=== PATIENT | male | born 1990 | race Caucasian/White ===

== ENCOUNTER 2019-09-01 12:59 | Emergency (ER) | payer MEDICAID ==
[~2019-09-01] VITALS: Ht 193 cm; Wt 106.0 kg
[2019-09-01 13:02] VITALS: BP 143/93
[2019-09-01] MEDS ORDERED: QUET200T PO (13:39)
== END 2019-09-01 13:59 | disposition home or self-care (01) ==
LOC: ER 12:59
DX: F32.9 Major depressive disorder, single episode, unspecified (principal); Z76.0 Encounter for issue of repeat prescription; Z79.899 Other long term (current) drug therapy
CPT/HCPCS: 99283

== ENCOUNTER 2019-09-16 14:03 | Emergency (ER) | payer MEDICAID ==
[~2019-09-16] VITALS: Ht 194.3 cm; Wt 110.2 kg
[~2019-09-16 14:03] MED LIST: QUET200T PO
[2019-09-16 14:11] VITALS: BP 134/82
[2019-09-16] MEDS ORDERED: QUET200T PO (14:43)
== END 2019-09-16 14:52 | disposition home or self-care (01) ==
LOC: ER 14:03
DX: F32.9 Major depressive disorder, single episode, unspecified (principal); Z79.899 Other long term (current) drug therapy
CPT/HCPCS: 99281

== ENCOUNTER 2019-10-18 12:19 | Emergency (ER) | payer MEDICAID ==
[~2019-10-18] VITALS: Ht 193 cm; Wt 102.3 kg
[2019-10-18 13:15] VITALS: BP 138/80
[2019-10-18] MEDS ORDERED: QUET-1 PO (13:59)
[2019-10-18] MEDS ORDERED: QUET200T PO ×2 (13:59→14:01)
== END 2019-10-18 14:06 | disposition home or self-care (01) ==
LOC: ER 12:19
DX: G47.00 Insomnia, unspecified (principal); F31.9 Bipolar disorder, unspecified; Z76.0 Encounter for issue of repeat prescription; Z79.899 Other long term (current) drug therapy
CPT/HCPCS: 99281

== ENCOUNTER 2020-06-17 10:48 | Emergency (ER) | payer MEDICAID ==
[~2020-06-17] VITALS: Ht 193 cm; Wt 102.4 kg
[2020-06-17 11:18] VITALS: BP 144/81
[2020-06-17] MEDS ORDERED: HYDR-3965 PO (11:42)
[2020-06-17] MEDS ORDERED: AMOX-117 PO (11:42)
== END 2020-06-17 12:01 | disposition home or self-care (01) ==
LOC: ER 10:49
DX: K08.89 Other specified disorders of teeth and supporting structures (principal); F31.9 Bipolar disorder, unspecified; F32.9 Major depressive disorder, single episode, unspecified
CPT/HCPCS: 99283

== ENCOUNTER 2020-07-22 12:57 | Emergency (ER) | payer MEDICAID ==
[~2020-07-22] VITALS: Ht 193 cm; Wt 104.8 kg
[2020-07-22] MEDS ORDERED: HYDR-3965 PO (13:52)
[2020-07-22 14:03] VITALS: BP 126/91
== END 2020-07-22 14:02 | disposition home or self-care (01) ==
LOC: ER 12:57
DX: K91.89 Other postprocedural complications and disorders of digestive system (principal); K08.89 Other specified disorders of teeth and supporting structures; R20.0 Anesthesia of skin; F31.9 Bipolar disorder, unspecified; Z79.899 Other long term (current) drug therapy
CPT/HCPCS: 99283

== ENCOUNTER 2021-04-23 20:51 | Emergency (ER) | payer MEDICAID ==
[~2021-04-23] VITALS: Ht 193 cm; Wt 102.0 kg
[2021-04-23 20:57] VITALS: BP 137/52
[2021-04-23] MEDS ORDERED: IBUP-1984 PO (21:11)
--- NOTE | 2021-04-23 21:28 | NUR ---
PT SEEN AND DC'D BY PROVIDER
== END 2021-04-23 21:30 | disposition home or self-care (01) ==
LOC: ER 20:51
DX: R22.42 Localized swelling, mass and lump, left lower limb (principal); M79.652 Pain in left thigh; Z79.899 Other long term (current) drug therapy
CPT/HCPCS: 99282

== ENCOUNTER 2024-05-28 15:30 | Outpatient (CLI) | payer BC ==
[2024-05-28] MEDS ORDERED: TEST100V11 IM (18:39)
[2024-05-28] MEDS ORDERED: QUET25TA36 PO (18:39)
[2024-05-28] MEDS ORDERED: HYDR-3972 PO (18:39)
[2024-05-28] MEDS ORDERED: CIPR-202 PO (19:41)
== END 2024-05-28 23:59 | disposition home or self-care (01) ==
LOC: US 15:30
PROVIDERS: ATTEND Registered Nurse
DX: N50.1 Vascular disorders of male genital organs (principal); N50.812 Left testicular pain
CPT/HCPCS: 76870; 93976

== ENCOUNTER 2024-05-28 16:18 | Inpatient (IN) | payer BC ==
[~2024-05-28] VITALS: Ht 190.5 cm; Wt 96.4 kg
[2024-05-28] MEDS: HYDROcodone/acetaminophen 10/325mg tab PO ONE (17:17)
[2024-05-28] MEDS: fentaNYL/PF 50MCG/1 ML 2ML syringe IV ONE (17:59)
[2024-05-28] MEDS: normal saline 1000ML IV soln IVB ONE (17:59)
[2024-05-28] MEDS ORDERED: HYDR-3972 PO (18:39)
[2024-05-28] MEDS ORDERED: QUET25TA36 PO (18:39)
[2024-05-28] MEDS ORDERED: TEST100V11 IM (18:39)
[2024-05-28 19:08] LABS: BILIRUBIN,URINE NEGATIVE (Neg); CLARITY,URINE CLEAR (Clear); COLOR,URINE YELLOW (Yellow); GLUCOSE, URINE NEGATIVE (Neg); KETONES,URINE NEGATIVE (Neg); LEUKOCYTE ESTERASE ,URINE NEGATIVE (Neg); NITRITES, URINE NEGATIVE (Neg); OCCULT BLOOD,URINE NEGATIVE (Neg); PROTEIN,URINE NEGATIVE (Neg); UROBILINOGEN,URINE 0.2 E.U/dL (0.2-1.0)
[2024-05-28] MEDS ORDERED: ondansetron/PF 4mg/2ml inj IV PRN ×2 (19:10→19:25)
[2024-05-28] MEDS ORDERED: meperidine/PF 25mg/ml syringe IV PRN ×3 (19:10)
[2024-05-28] MEDS ORDERED: morphine 4 MG/ML inj SYRINge IV PRN (19:10)
[2024-05-28] MEDS ORDERED: enalaprilat dihydrate 2.5mg/2ml vial IV PRN (19:10)
[2024-05-28] MEDS: ringers solution, lacted 1,000 ML IV SCH (19:10)
[2024-05-28] MEDS ORDERED: labetalol 20mg/4ml (5mg/ml) syringe IV PRN (19:10)
[2024-05-28] MEDS ORDERED: morphine 2 MG/ML inj. syringe IV PRN ×3 (19:10→19:25)
[2024-05-28] MEDS ORDERED: proCHLORperazine 10 MG/2 ml inj IV PRN (19:10)
[2024-05-28 19:23] LABS: UA COLLECTION TYPE URINAL
[2024-05-28] MEDS ORDERED: magnesium sulf-water 4G/100mL 100 ML IV PRN (19:25)
[2024-05-28] MEDS ORDERED: HYDROcodone/acetaminophen 10/325mg tab PO PRN (19:25)
[2024-05-28] MEDS ORDERED: normal saline 1000ml 1,000 ML IV SCH (19:25)
[2024-05-28] MEDS ORDERED: potassium Cl 40MEQ/1/2NS 520ml 520 ML IV PRN (19:25)
[2024-05-28] MEDS ORDERED: potassium Cl 20 mEq SR tablet PO PRN ×2 (19:25)
[2024-05-28] MEDS ORDERED: mag hydrox/Alum hydrox/simeth 30ml oral suspension PO PRN (19:25)
[2024-05-28] MEDS ORDERED: magnesium Cl slow-release 64mg tablet PO PRN (19:25)
[2024-05-28] MEDS ORDERED: HYDROcodone/acetaminophen 5mg/325mg tablet PO PRN (19:25)
[2024-05-28] MEDS ORDERED: acetaminophen 325mg tablet PO PRN ×2 (19:25)
[2024-05-28] MEDS ORDERED: magnesium sulf-water 2g/50mL 50 ML IV PRN (19:25)
[2024-05-28] MEDS ORDERED: CIPR-202 PO (19:41)
[2024-05-28] MEDS ORDERED: K and/or MAG REPLACEMENT MC SCH (20:00)
[2024-05-28] MEDS: ciprofloxacin 250mg tablet PO ONE (20:07)
[2024-05-28 20:08] VITALS: BP 142/85; PULSE 81; RESP 18; TEMP 98.4; O2SAT 98
== END 2024-05-28 21:00 | disposition home or self-care (01) | DRG 728 ==
LOC: ER 16:19 → ED HOLD 19:23
PROVIDERS: ADMIT Internal Medicine Critical Care Medicine; ATTEND Internal Medicine Critical Care Medicine
DX: N45.1 Epididymitis (principal); N44.04 Torsion of appendix epididymis; N41.0 Acute prostatitis; F31.9 Bipolar disorder, unspecified; Z79.899 Other long term (current) drug therapy
CPT/HCPCS: 81003; 96374; 99291; G0378; J3010; J7030; J7120

== ENCOUNTER 2024-06-08 09:43 | Outpatient (CLI) | payer BC ==
[~2024-06-08 09:43] MED LIST changes: +CIPR-202 PO; +GADOTERATE MEGLUMINE 7.5 MMOL/15 ML VIAL IV ONE; +HYDR-3972 PO; +QUET25TA36 PO; +TEST100V11 IM
[2024-06-09] MEDS ORDERED: GADOTERATE MEGLUMINE 7.5 MMOL/15 ML VIAL IV ONE (07:24)
== END 2024-06-08 23:59 | disposition home or self-care (01) ==
LOC: MRI 09:43
PROVIDERS: ATTEND Registered Nurse
DX: N50.811 Right testicular pain (principal); N50.812 Left testicular pain; N50.89 Other specified disorders of the male genital organs; R10.2 Pelvic and perineal pain
CPT/HCPCS: 72197; A9575